=== PATIENT | male | born 1990 | race Caucasian/White ===

== ENCOUNTER 2021-12-15 19:43 | Emergency (ER) | payer BC ==
[~2021-12-15] VITALS: Ht 172.7 cm; Wt 84.8 kg
[2021-12-15] MEDS ORDERED: PROTONIX TR40 M1 PO (20:18)
[2021-12-15] MEDS ORDERED: [UNRECOGNIZED DRUG - REMARK] (20:19)
[2021-12-15] MEDS ORDERED: RT ALBUTEROL CC18 GM IH (20:19)
[2021-12-15 21:08] VITALS: BP 118/89
== END 2021-12-15 21:09 | disposition home or self-care (01) ==
LOC: ED 19:43
DX: F45.8 Other somatoform disorders (principal); Z28.311 Partially vaccinated for COVID-19